=== PATIENT | male | born 1985 | race Caucasian/White ===

== ENCOUNTER 2022-09-29 09:15 | Outpatient (CLI) | payer BC, SELFPAY | END 2022-09-29 09:16 | disposition home or self-care (01) | LOC: NFLDREF 21:54 | PROVIDERS: PCP Family Medicine; Referring Provider Family Medicine; Visit Provider Family Medicine | DX: Z00.00 Encounter for general adult medical examination without abnormal findings (principal); R53.83 Other fatigue; R63.5 Abnormal weight gain; N50.819 Testicular pain, unspecified; R68.82 Decreased libido; Z13.6 Encounter for screening for cardiovascular disorders | CPT/HCPCS: 80048; 80061; 84270; 84402; 84403 ==

== ENCOUNTER 2024-11-28 10:05 | Outpatient (CLI) | payer SELFPAY | END 2024-11-28 10:06 | disposition home or self-care (01) | LOC: NFLDREF 12-02 07:42 | PROVIDERS: PCP Family Medicine; Referring Provider Family Medicine; Visit Provider Family Medicine | DX: Z00.00 Encounter for general adult medical examination without abnormal findings (principal); R53.83 Other fatigue; R42 Dizziness and giddiness; R35.0 Frequency of micturition; R63.5 Abnormal weight gain; R68.82 Decreased libido; N50.819 Testicular pain, unspecified; Z13.6 Encounter for screening for cardiovascular disorders; Z12.5 Encounter for screening for malignant neoplasm of prostate | CPT/HCPCS: 80053; 80061; 84270; 84402; 84403; G0103 ==